=== PATIENT | female | born 1940 | race African-American/Black ===

== ENCOUNTER 2017-10-27 09:14 | Day surgery (SDC) | payer OTHER ==
[~2017-10-27 09:14] MED LIST: LIDOCAINE 1% Multi-Dose 50 ML VIAL. INJ; LIDOCAINE 1% PF 2 ML VIAL. ID; METHYLENE BLUE 1% 10 ML VIAL. IJ; MORPHINE SULFATE 4 MG/ML DISP.SYRIN. IV; ONDANSETRON PF 4 MG/2 ML VIAL. IV; PROCHLORPERAZINE 10 MG/2 ML VIAL. IV; fentaNYL PF VIAL 100 MCG/2 ML VIAL IV
[2017-10-27] MEDS ORDERED: METHYLENE BLUE 1% 10 ML VIAL. (09:25)
[2017-10-27] MEDS: IV RINGERS,LACTATED 1000ML 1,000 ML IV (09:50)
[2017-10-27 09:57] LABS: ADD MAN DIFF? NO
[2017-10-27 10:04] LABS: BASO % 1 % (0-3); EOS # 0.2 x10^3/uL (0.0-0.7); EOS % 4 % (0-3); HEMATOCRIT 33.7 % (36.0-47.0); HEMOGLOBIN 10.8 g/dL (12.0-15.5); LYMPH # 1.3 x10^3/uL (1.0-4.8); LYMPH % 22 % (24-48); MEAN CORPUSCULAR HEMOGLOBIN 27 pg (25-35); MEAN CORPUSCULAR HGB CONC 32 g/dL (31-37); MEAN CORPUSCULAR VOLUME 83 fL (79-100); MONO # 0.6 x10^3/uL (0.0-1.1); MONO % 10 % (0-9); NEUT # 3.5 x10^3uL (1.8-7.7); NEUT % 63 % (31-73); PLATELET COUNT 268 x10^3/uL (140-400); RED BLOOD COUNT 4.06 x10^6/uL (3.50-5.40); RED CELL DISTRIBUTION WIDTH 13.6 % (11.5-14.5); WHITE BLOOD COUNT 5.6 x10^3/uL (4.0-11.0)
[2017-10-27 10:15] LABS: ALBUMIN 3.8 g/dL (3.4-5.0); ALBUMIN/GLOBULIN RATIO 0.9 (1.0-1.7); ALK PHOS 64 U/L (46-116); ALT (SGPT) 20 U/L (14-59); ANION GAP 8 (6-14); AST (SGOT) 15 U/L (15-37); BLOOD UREA NITROGEN 15 mg/dL (7-20); BUN/CREATININE RATIO 15 (6-20); CALCIUM 9.1 mg/dL (8.5-10.1); CARBON DIOXIDE 31 mmol/L (21-32); CHLORIDE 103 mmol/L (98-107); GFR 65.1; GLUCOSE 122 mg/dL (70-99); SODIUM 142 mmol/L (136-145); TOTAL BILIRUBIN 0.4 mg/dL (0.2-1.0); TOTAL PROTEIN 8.1 g/dL (6.4-8.2)
[2017-10-27 10:25] LABS: INR 1.1 (0.8-1.1); PROTHROMBIN TIME PATIENT 13.3 SEC (11.7-14.0)
[2017-10-27] MEDS ORDERED: SUCCINYLCHOLINE 200 MG/10 ML VIAL. (10:30)
[2017-10-27] MEDS ORDERED: SEVOFLURANE 31 TO 60 MINUTES. IH (10:30)
[2017-10-27] MEDS ORDERED: FAMOTIDINE 20 MG/2 ML VIAL (10:31)
[2017-10-27] MEDS ORDERED: DEXAMETHASONE SOD PHOS 20 MG/5 ML VIAL. (10:31)
[2017-10-27] MEDS ORDERED: PROPOFOL 20 ML IV (10:31)
[2017-10-27] MEDS ORDERED: ONDANSETRON PF 4 MG/2 ML VIAL. (10:31)
[2017-10-27] MEDS ORDERED: PHENYLEPHRINE in 0.9% NACL PF 1 MG/10 ML SYRINGE. IV (12:03)
[2017-10-27 13:28] LABS: POC GLUCOSE 103 mg/dL (70-99)
[2017-10-27] MEDS ORDERED: HYDROcodone/APAP 5/325MG 1 TAB TABLET PO (14:00)
== END 2017-10-27 14:31 | disposition home or self-care (01) ==
LOC: US 09:14
DX: C50.412 Malignant neoplasm of upper-outer quadrant of left female breast (principal); D24.2 Benign neoplasm of left breast; N60.42 Mammary duct ectasia of left breast; N60.32 Fibrosclerosis of left breast; N60.92 Unspecified benign mammary dysplasia of left breast; I10 Essential (primary) hypertension; E11.9 Type 2 diabetes mellitus without complications; K21.9 Gastro-esophageal reflux disease without esophagitis; E78.00 Pure hypercholesterolemia, unspecified; E66.9 Obesity, unspecified; Z68.34 Body mass index [BMI] 34.0-34.9, adult; M19.90 Unspecified osteoarthritis, unspecified site; Z91.041 Radiographic dye allergy status; Z98.51 Tubal ligation status; Z72.89 Other problems related to lifestyle; Z79.4 Long term (current) use of insulin; Z79.84 Long term (current) use of oral hypoglycemic drugs; Z80.3 Family history of malignant neoplasm of breast; Z98.890 Other specified postprocedural states
CPT/HCPCS: 19083; 36415; 76098; 76942; 77065; 80053; 82962; 85025; 85610; 88305; 88361; J0330; J0690; J1100; J2370; J2405; J2704; J7120; Q9968; S0028

== ENCOUNTER → 2018-05-05 | Outpatient (CLI) | payer OTHER, MEDICAID ==
[2017-10-27 14:00] VITALS: BP 168/81
[~2018-05-05] MED LIST changes: +ACET500T33 PO; +ALLO100T PO; +AMLO5TAB7 PO; +ANAS1TAB47 PO; +ASPI-482 PO; +ATEN50TA PO; +GADOBUTROL 10 MMOL/10 ML VIAL IV ONE; +GLIP5TAB10 PO; +HYDR25TA9 PO; -LIDOCAINE 1% Multi-Dose 50 ML VIAL. INJ; -LIDOCAINE 1% PF 2 ML VIAL. ID; +LISI-130 PO; +LOVA40TA2 PO; -METHYLENE BLUE 1% 10 ML VIAL. IJ; -MORPHINE SULFATE 4 MG/ML DISP.SYRIN. IV; +MULT-98 PO; -ONDANSETRON PF 4 MG/2 ML VIAL. IV; +OXYC-411 PO; -PROCHLORPERAZINE 10 MG/2 ML VIAL. IV; -fentaNYL PF VIAL 100 MCG/2 ML VIAL IV
--- NOTE | 2018-05-05 13:03 | RAD ---
MRI left shoulder with and without contrast dated 05/05/2018. No comparison available. Clinical data indication: Shoulder pain for one month. Decreased range of motion. History of breast cancer. TECHNIQUE: Routine multiplanar multisequence MR imaging of left shoulder performed. In addition, fat-saturated T1-weighted imaging performed in 3 planes following the intravenous administration of 10 cc Gadavist. FINDINGS: Massive full-thickness tear of the rotator cuff involving the supraspinatus and infraspinatus tendons. The torn portion of the cuff is retracted to the level of the joint. There is severe atrophy and volume loss of the supraspinatus and infraspinatus muscles. The teres minor is of increased signal but otherwise intact. There is mild edema in the teres minor muscle. Subscapularis is of intermediate T2 signal. There is probable full-thickness involvement of the upper margin of the subscapularis. Moderate hypertrophic change of the acromial clavicular joint with undersurface spurring of the acromium. There is marked narrowing of the subacromial space with small subacromial/subdeltoid bursal effusion. The acromium is type I morphology. The long head biceps tendon is not identified and may be chronically torn or subluxed medially into the joint. Blunted morphology of the posterior labrum. There is also mild thinning and surface irregularity of the glenoid articular cartilage. Small glenohumeral joint effusion. No loose body. Postcontrast imaging shows no evidence of mass. There is some enhancement along the rotator cuff margins and joint capsule, likely reactive. IMPRESSION: 1. Massive full-thickness tear of the rotator cuff as described above. The torn portion of the cuff is retracted to the level of the joint. 2. Moderate AC joint arthropathy with undersurface spurring. There is marked narrowing of the subacromial space with small subacromial/subdeltoid bursal effusion. 3. Nonvisualization of the long head biceps tendon which could be chronically torn at the biceps anchor or subluxed medially into the joint. 4. 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 Electronically signed by: Tomas Michelle MD (05/05/2018 1:00 PM) [id number]
== END | disposition home or self-care (01) ==
LOC: MRI 11:23
PROVIDERS: ATTEND Internal Medicine Hematology & Oncology
DX: C50.412 Malignant neoplasm of upper-outer quadrant of left female breast (principal); M75.122 Complete rotator cuff tear or rupture of left shoulder, not specified as traumatic; M94.212 Chondromalacia, left shoulder; M19.012 Primary osteoarthritis, left shoulder; Z17.0 Estrogen receptor positive status [ER+]
CPT/HCPCS: 73223; A9585

== ENCOUNTER → 2019-03-18 | Outpatient (CLI) | payer MEDICAID, OTHER ==
[2017-10-27 14:00] VITALS: BP 168/81
[~2019-03-18] MED LIST changes: +AMLO5TAB10 PO; -AMLO5TAB7 PO; -GADOBUTROL 10 MMOL/10 ML VIAL IV ONE; +HYDR-2145 PO; -HYDR25TA9 PO; +VENL75CA PO
--- NOTE | 2019-03-18 14:53 | RAD ---
Examination: CT CHEST ABDOMEN PELVIS WO History: Left upper outer quadrant breast neoplasm Comparison/Correlation: Whole body scintigraphy 03/18/2019 Findings: Axial images of the chest, abdomen, and pelvis were obtained with oral contrast only. Sagittal and coronal reformatted images were provided. Diffuse enlargement of the thyroid gland compatible with goiter noted. Marked degenerative changes of the right sternoclavicular joint and the articulation of the right first rib and manubrium is noted. Multiple right paratracheal lymph nodes are present. Right lower paratracheal lymph node measuring up to 0.8 cm in short axis diameter is present.. Tracheal bronchial tree is unremarkable. No infiltrate or pleural effusion. No pneumothorax. No suspicious pulmonary nodule or mass. No pleural or pericardial effusion. Small hiatal hernia is present. Liver, spleen, pancreas, and adrenal glands are normal. Gallbladder fossa is unremarkable. No radiopaque collecting system calculi are identified. Urinary bladder is unremarkable. Appendix is normal. Diverticulosis is present without findings of acute inflammation. Fibroid uterus is evident. Facet joint degenerative remodeling bilaterally is notable involving the lumbar spine. Sacroiliac joint degenerative changes are present with vacuum phenomenon. Heterotopic ossification at the anterior aspect of the left hip joint noted. Impression: Small hiatal hernia. Right paratracheal lymph nodes are present but not enlarged. These are likely reactive. Correlate clinically in determining interval follow-up CT to assess stability. PQRS Compliance Statement: One or more of the following individualized dose reduction techniques were utilized for this examination: 1. Automated exposure control 2. Adjustment of the mA and/or kV according to patient size 3. Use of iterative reconstruction technique Electronically signed by: Trino Jara MD (03/18/2019 2:51 PM) [facility]
--- NOTE | 2019-03-18 14:56 | RAD ---
Examination: BONE SCAN WHOLE BODY History: Breast cancer diagnosed in November 2017 Comparison/Correlation: CT chest abdomen and pelvis without contrast Findings: 25 mCi technetium 99m MDP was intravenously administered for purposes of whole body bone scintigraphy. Intense uptake involving the right sternoclavicular joint region is present corresponding to advanced degenerative changes on CT exam. Uptake corresponding to degenerative changes of the low lumbar spine are noted. Degenerative changes of the knee joint spaces noted. Degenerative changes of the right ankle noted. Uptake which appears represent degenerative changes of the first metatarsophalangeal joints bilaterally noted greater on the right. Kidneys and urinary bladder unremarkable. Impression: No abnormal attenuation radiotracer to suggest bony metastatic disease. Electronically signed by: Trino Jara MD (03/18/2019 2:53 PM) [facility]
== END | disposition home or self-care (01) ==
LOC: NM 09:00
PROVIDERS: ATTEND Internal Medicine Hematology & Oncology
DX: C50.412 Malignant neoplasm of upper-outer quadrant of left female breast (principal); K57.90 Diverticulosis of intestine, part unspecified, without perforation or abscess without bleeding; Z17.0 Estrogen receptor positive status [ER+]; K44.9 Diaphragmatic hernia without obstruction or gangrene; M53.3 Sacrococcygeal disorders, not elsewhere classified; E04.9 Nontoxic goiter, unspecified
CPT/HCPCS: 71250; 74176; 78306; A9503